=== PATIENT | female | born 1960 | race Two or more races ===

== ENCOUNTER 2016-12-24 22:11 | Emergency (ER) | payer OTHER ==
[2016-12-24] MEDS ORDERED: DEXTROSE 50% 1 VIAL SOL IV ONE ×2 (22:15→22:20)
[2016-12-24] MEDS ORDERED: DEXTROSE/SALINE 0.45% 1,000 ML IV ONE (22:30)
[2016-12-24] MEDS ORDERED: DEXTROSE/SALINE 0.9% 1,000 ML IV ONE (22:30)
[2016-12-24 22:46] VITALS: RESP 18; TEMP 97.8
[2016-12-24 22:59] LABS: BASOPHILS % (AUTO) 1 % (0-3); EOSINOPHILS % (AUTO) 2 % (0-9); HEMATOCRIT 32 % (35-47); MEAN CORPUSCULAR HGB CONC 34.5 gm/dl (32.0-36.0); MEAN CORPUSCULAR VOLUME 83 fL (81-99); MONOCYTES % (AUTO) 6.5 % (0-12); NEUTROPHILS % (AUTO) 74.6 % (37-80)
[2016-12-24 23:10] LABS: CALCIUM 8.6 mg/dl (8.5-10.1); POTASSIUM 4.4 mMol/L (3.5-5.1)
[2016-12-24 23:23] LABS: APPEARANCE,URINE Clear; BILIRUBIN,URINE NEGATIVE (NEGATIVE); COLOR,URINE Yellow; GLUCOSE, URINE (UA) TRACE (NEGATIVE); KETONES,URINE NEGATIVE (NEGATIVE); LEUKOCYTE ESTERASE ,URINE TRACE (NEGATIVE); NITRATE,URINE NEGATIVE (NEGATIVE); OCCULT BLOOD,URINE NEGATIVE (NEG-TRACE); PH,URINE 6.5; UROBILINOGEN,URINE 0.2 (0.2-1.0 EU)
[2016-12-24 23:34] LABS: RBC,URINE 0-1 (0-3AV/HPF); WBC,URINE 0-6 (0-5AV/HPF)
[2016-12-25 00:32] VITALS: BP 105/51; PULSE 64; O2SAT 98
== END 2016-12-25 00:22 | disposition home or self-care (01) | DRG 639 ==
LOC: ED 22:11
DX: E11.649 Type 2 diabetes mellitus with hypoglycemia without coma (principal); Z79.4 Long term (current) use of insulin
CPT/HCPCS: 36415; 80048; 81001; 82962; 85025; 96365; 96366; 96374; 99282; 99284